=== PATIENT | male | born 1965 | race Caucasian/White ===

== ENCOUNTER → 2023-10-17 09:42 | Outpatient (REF) | payer BC, SELFPAY | LOC: RAD 09:42 | PROVIDERS: ATTENDING PHYSICIAN Internal Medicine | DX: M79.604 Pain in right leg (principal) | CPT/HCPCS: 73590 ==

== ENCOUNTER → 2024-07-19 08:05 | Outpatient (REF) | payer BC, SELFPAY | LOC: RAD 08:05 | PROVIDERS: ATTENDING PHYSICIAN Internal Medicine Gastroenterology | DX: K59.09 Other constipation (principal) | CPT/HCPCS: 74018 ==

== ENCOUNTER 2024-10-03 09:48 | Outpatient (RCR) | payer BC, SELFPAY | END 2024-10-03 23:59 | disposition home or self-care (01) | LOC: RPT 09:48 | PROVIDERS: ATTENDING PHYSICIAN Internal Medicine Gastroenterology; FAMILY PHYSICIAN Internal Medicine | DX: K59.09 Other constipation (principal); M62.89 Other specified disorders of muscle; Z73.6 Limitation of activities due to disability | CPT/HCPCS: 97110; 97112; 97140; 97162; 97530 ==

== ENCOUNTER 2024-10-31 10:04 | Outpatient (RCR) | payer BC, SELFPAY | END 2024-10-31 23:59 | disposition home or self-care (01) | LOC: RPT 10:04 | PROVIDERS: ATTENDING PHYSICIAN Internal Medicine Gastroenterology; FAMILY PHYSICIAN Internal Medicine | DX: K59.09 Other constipation (principal); M62.89 Other specified disorders of muscle; Z73.6 Limitation of activities due to disability | CPT/HCPCS: 97014; 97110; 97112; 97140; 97530 ==

== ENCOUNTER 2024-11-28 09:49 | Outpatient (RCR) | payer BC, SELFPAY | END 2024-11-28 23:59 | disposition home or self-care (01) | LOC: RPT 09:49 | PROVIDERS: ATTENDING PHYSICIAN Internal Medicine Gastroenterology; FAMILY PHYSICIAN Internal Medicine | DX: K59.09 Other constipation (principal); M62.89 Other specified disorders of muscle; Z73.6 Limitation of activities due to disability | CPT/HCPCS: 97014; 97110; 97112; 97140; 97530 ==

== ENCOUNTER → 2025-02-20 07:35 | Outpatient (REF) | payer BC, SELFPAY | LOC: RAD 07:35 | PROVIDERS: ATTENDING PHYSICIAN Internal Medicine | DX: R10.9 Unspecified abdominal pain (principal); R11.0 Nausea | CPT/HCPCS: 74177; Q9967 ==

== ENCOUNTER 2025-06-04 09:10 | Outpatient (RCR) | payer BC, SELFPAY | END 2025-06-04 23:59 | disposition home or self-care (01) | LOC: ROT 09:10 | PROVIDERS: ATTENDING PHYSICIAN Internal Medicine | DX: M79.601 Pain in right arm (principal); Z73.6 Limitation of activities due to disability; M77.11 Lateral epicondylitis, right elbow | CPT/HCPCS: 97010; 97110; 97140; 97166; 97535 ==

== ENCOUNTER 2025-08-22 13:39 | Inpatient (IN) | payer BC, SELFPAY ==
[2025-08-22] VITALS (11 sets, daily range): BP systolic 100–119; BP diastolic 58–84; BMI 25.0; BMI 24.3
[2025-08-22 05:13] LABS: ALT (SGPT) 29 U/L (0-50); AST (SGOT) 40 U/L (17-59); Albumin 5.0 g/dl (3.5-5.0); Alkaline Phosphatase 62 U/L (38-126); Blood Urea Nitrogen 21 mg/dl (9-20); Calcium 9.5 mg/dl (8.4-10.2); Carbon Dioxide 24 mmol/L (22-30); Chloride 101 mmol/L (98-107); Glucose 150 mg/dl (70-99); Lipase 110 U/L (23-300); Potassium 4.4 mmol/L (3.5-5.1); Sodium 136 mmol/L (135-145); Total Protein 7.4 g/dl (6.3-8.2); eGFR > 60.00
[2025-08-22] MEDS: ZOFRAN 4 MG IV ×3 (05:21→18:53)
[2025-08-22] MEDS: NSS 1000 IV ×2 (05:22→06:58)
[2025-08-22 05:25] LABS: Hematocrit 50.5 % (39.0-52.0); Hemoglobin 17.6 g/dL (13.0-18.0); Mean Corp Hgb Conc. 34.9 g/dL (33.0-37.0); Mean Corpuscular Volume 86.8 fL (80.0-94.0); Nucleated Red Blood Cells % 0 % (-); Platelet Count 199 10^3/uL (130-400); Red Cell Dist. Width 11.9 % (11.5-14.5)
[2025-08-22] MEDS: MORPHINE SULFATE 4 MG IV (05:26)
--- NOTE | 2025-08-22 05:33 | ED.GENMED ---
History of Present Illness
General
Chief Complaint: Abdominal Symptoms
Source: patient and records
Exam Limitations: none
Time Seen by Provider: 08/22/25 04:53
History of Present Illness
History of Present Illness:
60-year-old male presents with abdominal pain nausea vomiting diarrhea onset at 10 AM had some pizza, some alcohol, is also been weaning off medication mirtazapine has not had some in over a week, took some lorazepam which she takes at night to help
with sleep,--- since his gallbladder was removed few years ago he had chronic upper abdominal pain with nausea, states this is much worse, felt some chills, diarrhea is also had scoliosis surgery previously CAD with stenting, states this is
different than his coronary artery disease angina
Past History
Past History
ED Past Medical History: Other (Scoliosis with previous Silva rods)
Social History
Tobacco: Non-smoker
Alcohol: Occasional
Family History
Family History: Negative Early CAD
Review of Systems
Review of Systems
All Other Systems: Not applicable
Constitutional: Reports fatigue and chills; Denies fever
EENT: Reports no symptoms
Respiratory: Reports no symptoms
Cardiac: Denies chest pain
ABD/GI: Reports abdominal pain, nausea, vomiting and diarrhea
: Reports no symptoms
Musculoskeletal: Reports no symptoms
Skin: Reports no symptoms
Neurological: Reports no symptoms
Endocrine: Reports no symptoms
Phy Exam
Physical Exam
Physical Exam:
Physical Exam
General: 60-year-old male looks uncomfortable but nontoxic
Neck: Slightly dry sclera is white
Heart: s1/s2 regular rate and rhythm, no murmur. equal radial pulses.
Lungs: no acute respiratory distress. clear bilaterally
Abdomen: Minimal epigastric tenderness
Neuro: alert and oriented. no focal neurological deficits
Skin: no rash
Psychiatric: well kept. interactive and cooperative
Extremities: no edema.
Course
Orders/Labs/Results
Orders:
Orders
08/22/25 04:35
Complete Blood Count/With Diff Urgent
Comprehensive Metabolic Panel Urgent
Direct Bilirubin Urgent
Lipase Urgent
08/22/25 05:11
Electrocardiogram (*1) Urgent
Reason for Study: Abdominal Pain
08/22/25 05:12
EKG- Treatment ONCE
08/22/25 05:14
0.9% Sodium Chloride 1000 ml [Nss] 1,000 ml IV BOLUS
Ondansetron Injectable [Zofran] 4 mg IV NOW STA
08/22/25 05:19
Add On- LAB Urgent
Tests Added?: Direct bili
08/22/25 05:20
CT Abd/Pel (IV only)-DH only Urgent
Comment:
Reason For Exam: Pain and vomiting bili up
Morphine Sulfate 4 mg IV NOW STA
Abnormal Lab Results
08/22/25
04:35
WBC 13.6 H 10^3/uL
(4.8-10.8)
Absolute Neuts (auto) 12.7 H 10^3/uL
(1.4-6.5)
Absolute Lymphs (auto) 0.2 L 10^3/uL
(1.2-3.4)
Neutrophils % 93.1 H %
(42.2-75.2)
Lymphocytes % 1.6 L %
(20.5-51.1)
BUN 21 H mg/dl
(9-20)
Glucose 150 H mg/dl
(70-99)
Total Bilirubin 4.0 H mg/dl
(0.2-1.3)
08/22/25 04:35
08/22/25 04:35
Vital Signs
Initial and Last Documented VS:
Initial Vital Signs
Temp Pulse Resp BP Pulse Ox
97.8 F 84 21 115/82 99
08/22/25 04:11 08/22/25 04:11 08/22/25 04:11 08/22/25 04:11 08/22/25 04:11
Last Documented Vital Signs
Temp Pulse Resp BP Pulse Ox
97.8 F 84 21 115/82 99
08/22/25 04:11 08/22/25 04:11 08/22/25 04:11 08/22/25 04:11 08/22/25 05:34
*Radiology
Radiology exam reviewed: radiology read reviewed
*Pulse Oximetry
SaO2: 99
Oxygen Mode of Delivery: Room air
Patient hypoxic: no
*EKG
Interpreted by ED Provider?: Yes
Interpretation: normal
Comparison EKG: no comparison EKG present
Heart Rate: 78
Rate: normal
Rhythm: sinus
Ischemia: non-specific ST changes
*Entry Level Paralegal Interpretation
Rate: normal
Interpretation: normal
Heart Rate: 78
Rhythm: sinus
*Critical Care Note
Total Time (30-74mins, 75-104mins- exclusive of procedures): Not Applicable
Update Note
Update Note:
Update white count up bili up more so than baseline, will check CT start on IV fluids antiemetics, analgesics EKG looks nonischemic patient states this is different than his prior angina
ED Attending Note
-
Portions of this chart may have been created with voice recognition software.� Occasional wrong word or��sound alike� substitutions may have occurred due to the inherent limitations of voice recognition software.
Discharge Plan
Departure
Prescriptions:
No Action
atorvastatin 20 MG tablet
20 mg PO QPM
aspirin [Ecotrin Low Strength] 81 MG tablet,delayed release (DR/EC)
81 mg PO DAILY
lorazepam 0.5 MG tablet
0.5 mg PO Q4HPRN PRN (Reason: anixety)
lisinopril 2.5 MG tablet
2.5 mg PO DAILY
oxcarbazepine 300 MG tablet
300 mg PO BID
Nasacort
1 spray inhalation PRN PRN (Reason: allergies)
oxycodone-acetaminophen 5 MG/325 MG tablet
1 tab PO Q4HPRN PRN (Reason: moderate to severe pain) Qty: 6 0RF
Referrals:
Rita Barlow MD [Family Provider, Internal Medicine]
Interventions
Interventions:
*General Assessment Last Done: 08/22/25 05:30
*Neglect/Abuse Screening Last Done: 08/22/25 05:32
*ED COVID-19 Vaccine History Last Done: 08/22/25 05:30
*ED Influenza Vaccine History Last Done: 08/22/25 05:30
[facility] Fall Risk Assessment Tool Last Done: 08/22/25 05:32
*Risk Screen - Suicide (C-SSRS) Last Done: 08/22/25 04:08
YC-Qwijsr-Vqnobvqjsm Assessment Last Done: 08/22/25 05:32
Discharge Date and Time
Print Language: MEXICAN
--- NOTE | 2025-08-22 12:39 | HPS.HSE ---
Addendum entered and electronically signed by Javier Pak MD 08/22/25 20:06:
Attending Addendum-
I performed a history and physical exam of the patient and discussed his management with the resident. I reviewed the resident's note and agree with the documented findings and plan of care CC/HPI- came to [facility] ED due to poor po intake, nausea, and
multiple episodes of non bloody vomiting and diarrhea. Denies sick contacts fevers chills. Continues to feel nauseous and extremely fatigued s/p multiple doses of of zofran in ED. Seen with present. 'I still feel terrible and nauseous' Full 12
point ROS reviewed and negative except as documented Exam- vitals reviewed in EMR GEN-lethargic heart RRR lungs clear abd soft mild TTP generalized no rebound no guarding. LE no edema
Plan:
# Acute gastroenteritis with colitis
-associated leukocytosis
-check stool studies including norovirus-likely culprit
-hold of on abx for now
-CT abd 08/22-Findings suggest gastroenteritis and colitis. There is no evidence of obstruction or perforation.
-start IVF
-encourage clears
-supportive care
-CBC and BMP in am
# Hyperbilirubinemia
-from Gilbert's/stress induced
-trend
# Anxiety-cont q hs lorazepam and prn ativan-PDMP reviewed
# IBS
# CAD s/p stent-cont asa
# Elevated Sugars check HBa1c
Dispo hopeful dc in 24 to 48 hours
ACP
Patient consented to discuss, was with , time spent explanation of advance directives, changes in health status, patient�s health care wishes if the patient becomes unable to make health decisions, goals of care, code status, and prognosis- 16
minutes
Time spent coordinating care, review of plan of care with resident, personally reviewed previous records in EMR, med rec, labs, radiology, d/w nursing, family total time documented is exclusive of any additional time listed that was spent in advance
care planning discussion -�75 minutes
Original Note:
Family Physician
-
Family Physician: Rita Barlow
Chief Complaint
-
Abdominal pain
nausea and vomiting
diarrhea
History of Present Illness
Patient is a 60-year-old male with past medical history significant for IBS, hyperlipidemia, coronary artery disease, anxiety, who presented to the ED last night around 2 AM due to abdominal pain associated with nausea vomiting and diarrhea.
He had dinner around 6 PM, he had pizza along with his , soon after that he started to feel sick, had cramping, abdominal pain that was diffuse in nature and then he started to throw up.
He had about 4-6 episodes of vomiting, containing water and food particles, copious in amount but had no blood. He also had diarrhea, about 4-6 episodes, initially there were soft stools but later he had watery diarrhea but did not notice any black
stools, mucus or blood in the stools. He also felt very exhausted, cold and clammy but did not had any fever or chills.
He has had IBS for multiple years, and he has been working with her primary care physician for the IBS. Initially his statin was changed from atorvastatin to rosuvastatin but that did not help his symptoms, later he was switched to Repatha which he
took 3 doses, each dose 2 weeks apart. He felt briefly better but then he had his symptoms act up again with constipation. His Repatha was stopped about 1-1/2-month ago at the end of June. He was also on mirtazapine for his IBS which was
stopped 10 days ago. Initially he felt fine weaning off but then he had some anxiety issues difficulty sleeping at night which she has been treating with lorazepam.
He has had history of cholecystectomy that was done about 3-1/2 years ago. He was on cholestyramine for his IBS given the gallbladder removal but that was also discontinued about 3 months ago.
Currently he is off any medications and is in his washout period and is supposed to start ezetimibe in a few weeks.
. Since has gallbladder surgery, he reports he has had symptoms of upper abdominal pain and IBS and has been working with multiple diesel inspector in the past along with his primary care physician to control the symptoms. But he reports that
the symptoms are worse. Feels exhausted and has cold sweats ocasionally
Medical History
Past Medical History
Past Medical History: Reports CAD (s/p stent few years ago), Psychiatric (Anxiety) and Other (IBS,Gilbert's syndrome)
Past Surgical History: Reports Cardiac (PCI), Cholecystectomy (3 and half years ago) and Orthopedic (Back surgery for scoliosis twice)
Social History
Tobacco: Non-smoker
Alcohol: Occasional (once very 1-2 weeks)
Drug: None
Personal:
Living: With Family
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
Family History
Family History: Not pertinent
Allergies / Home Medications
Allergies reflects when Allergies were last updated in [facility].
Home Medications with original date entered in [facility]
Allergy/Medication List:
Allergies
Allergy/AdvReac Type Severity Reaction Status Date / Time
pollen extracts Allergy Nasal Verified 08/22/25 04:08
congestion
- seasonal
Home Medications
aspirin 81 mg tablet,delayed release (Ecotrin Low Strength) 81 mg PO DAILY Blood clot prevention/tx 08/16/16
lorazepam 0.5 mg tablet 0.5 mg PO DAILYPRN PRN anixety 08/16/16
cholecalciferol (vitamin D3) 25 mcg (1,000 unit) tablet (Vitamin D3) 25 mcg PO DAILY 08/22/25
clindamycin phosphate 1 % topical gel 1 applic topical DAILY face 08/22/25
diclofenac sodium 1 % topical gel 2 g topical Q8H right elbow 08/22/25
lorazepam 0.5 mg tablet 1 mg PO HS 08/22/25
Review of Systems
-
Constitutional: Reports Chills and Other (cold sweats)
EENT: Reports No Symptoms
Respiratory: Reports No Symptoms
Cardiac: Reports Diaphoresis
Abdomen/GI: Reports Abdominal Pain, Nausea, Vomiting and Diarrhea
: Reports No Symptoms
Musculoskeletal: Reports No Symptoms
Skin: Reports No Symptoms
Neurological: Reports No Symptoms
Endocrine: Reports No Symptoms
Hematologic/Lymphatic: Reports No Symptoms
Psych: Reports No Symptoms
Physical Exam
Vital Signs
Vital Signs
Temp Pulse Resp BP Pulse Ox
97.8 F 78 18 115/67 96
08/22/25 04:11 08/22/25 07:30 08/22/25 07:30 08/22/25 07:00 08/22/25 07:30
Physical Exam
General: Well Developed, No Apparent Distress and Conversant
HEENT: NormoCephalic, Anicteric and Moist mucous membranes
Respiratory: Clear; No Wheezes, Rales or Rhonchi
Cardiac: S1/S2 and Regular Rhythm; No Murmur, Rub or Gallop
GI: Soft, Non Tender and Normal Bowel Sounds
Musculoskeletal: No Clubbing, No Cyanosis and No Edema
Skin: Warm and Dry
Neuro: Awake and AO x 3
Psych: Calm
Laboratory Results
-
08/22/25 04:35
08/22/25 04:35
Laboratory Results
Total Bilirubin 4.0 mg/dl (0.2-1.3) H 08/22/25 04:35
AST 40 U/L (17-59) 08/22/25 04:35
ALT 29 U/L (0-50) 08/22/25 04:35
Alkaline Phosphatase 62 U/L (38-126) 08/22/25 04:35
Lipase 110 U/L (23-300) 08/22/25 04:35
Impression/Plan
-
IMPRESSION:
Patient is a 60-year-old male, with past medical history significant for IBS, gut brain syndrome, coronary artery disease, hyperlipidemia who is here for abdominal pain associated with nausea vomiting and diarrhea
CT abdomen/pelvis suggest gastroenteritis and colitis. There is no evidence of obstruction or perforation.
History of cholecystectomy 3-1/2 years ago
Lipase levels normal
ASSESSMENT/PLAN:
#Abdominal pain secondary to colitis versus gastroenteritis
Acute onset of symptoms after dining out-suggests gastroenteritis
No history of fever or chills
No evidence of obstruction or perforation or CT abdomen
Lipase levels normal
History of cholecystectomy with normal liver enzymes and biliary tree
Isolated hyperbilirubinemia with history of Gilbert syndrome
Check stool studies
Symptomatic management with pain control and antiemetics
Clear liquid diet
Hold off antibiotics
Continue to monitor
# Leukocytosis
Most likely reactive to acute gastroenteritis/colitis
Hold off antibiotics
Continue to monitor
#Isolated hyperbilirubinemia
Most likely secondary to recent stress given the history of Gilbert's syndrome
Direct bilirubin normal
Continue to monitor
#Anxiety/depression-continue lorazepam as needed
#Coronary artery disease-no chest pain, continue baby aspirin
# History of IBS
# History of cholecystectomy
# History of PCI stent
# History of back surgery for scoliosis
CODE STATUS-DNR
Clear liquid diet
DVT prophylaxis-sequential compression devices
present at bedside, all questions and concerns answered
[2025-08-22] MEDS: ZOFRAN 4 MG PO (15:37)
[2025-08-22] MEDS: ATIVAN 0.5 MG PO (18:52)
[2025-08-22] MEDS: TYLENOL 650 MG PO (20:19)
[2025-08-22] MEDS: ATIVAN 1 MG PO (22:44)
[2025-08-23 07:15] VITALS: BP 117/70
--- NOTE | 2025-08-23 07:35 | W.PN.HOSP.TC ---
Addendum entered and electronically signed by Javier Pak MD 08/23/25 22:41:
Attending Addendum-I saw and evaluated the patient. I reviewed the resident�s note and agree with findings and plan as documented in the resident�s note. Sub: continues to have diarrhea but able to omer po, less nausea and no vomiting. feels greatly
improved. wants to go home. No fevers chills. Full 12 point ROS reviewed and negative except as documented Exam- vitals reviewed in EMR GEN-NAD heart RRR lungs clear abd soft mild TTP generalized no rebound no guarding. LE no edema
Plan:
# Acute gastroenteritis with colitis secondary to norovirus
-leukocytosis resolved
-CT abd 08/22-Findings suggest gastroenteritis and colitis. There is no evidence of obstruction or perforation.
-advance diet as omer
-supportive care
-DC home
# Hyperbilirubinemia
-from Gilbert's/stress induced
-trending down
# Anxiety-cont q hs lorazepam and prn ativan-PDMP reviewed
# IBS
# CAD s/p stent-cont asa
# Elevated Sugars check HBa1c
Dispo DC home
Time spent coordinating care, DC planning, review of DC plan of care with resident, transition of care, review of records, med rec/scripts sent electronically, consults, notes, d/w, nursing, and CM� 31 mins >50% of this time was devoted to
counseling and coordination of care
Original Note:
Today's Communication/Plan
-
Stable for discharge
Assessment / Plan
Assessment / Plan
Impression
Patient is a 60-year-old male, with past medical history significant for IBS, gut brain syndrome, coronary artery disease, hyperlipidemia who is here for abdominal pain associated with nausea vomiting and diarrhea
CT abdomen/pelvis suggest gastroenteritis and colitis. There is no evidence of obstruction or perforation.
History of cholecystectomy 3-1/2 years ago
Lipase levels normal
ASSESSMENT/PLAN:
#Abdominal pain secondary to acute gastroenteritis with colitis
Remains afebrile, denies any blood in stools
No evidence of obstruction or perforation or CT abdomen
C. difficile negative
Norovirus Positive
stool culture pending
Continue IV fluids
Continue clear liquid diet
# Leukocytosis
Most likely reactive to acute gastroenteritis/colitis
Resolved
#Isolated hyperbilirubinemia
Most likely secondary to Gilbert's syndrome-trending down
Direct bilirubin normal
# Mild hyponatremia-continue IV fluids and monitor
#Hypocalcemia-continue to monitor-corrected calcium 8.3
#Anxiety/depression-continue lorazepam as needed
#Coronary artery disease-no chest pain, continue baby aspirin
# History of IBS
# History of cholecystectomy
# History of PCI stent
# History of back surgery for scoliosis
CODE STATUS-DNR
Clear liquid diet
DVT prophylaxis-sequential compression devices
present at bedside, all questions and concerns answered
Anticipated Discharge: 24 - 48 hours
Subjective/Interval History
-
Date of Service: August 23, 2025
Patient seen and examined at bedside
Overall feeling better, feels less nauseous and has improvement in abdominal pain
Still having loose stools, no further vomiting
Denies any fever or chills and has no blood in stools
Objective Data
-
Labs:
Laboratory Results
08/23/25
07:24
WBC Pending
Hgb Pending
Hct Pending
Plt Count Pending
Sodium Pending
Potassium Pending
Chloride Pending
Carbon Dioxide Pending
BUN Pending
Creatinine Pending
Glucose Pending
Calcium Pending
Total Bilirubin Pending
AST Pending
ALT Pending
Alkaline Phosphatase Pending
Vital Signs:
Vital Signs
Temp Pulse Resp BP Pulse Ox
97.8 F 62 18 119/67 95
08/22/25 23:00 08/22/25 23:00 08/22/25 23:00 08/22/25 23:00 08/22/25 23:00
I&O
08/22/25 08/23/25 08/24/25
06:59 06:59 06:59
Intake Total 240 / 240
Balance 240 / 240
Review of Systems
-
Constitutional: Reports Fatigue
EENT: Reports No Symptoms Reported
Respiratory: Reports No Symptoms
Cardiac: Reports No Symptoms
Abdomen/GI: Reports Abdominal Pain and Nausea
Breast: Reports No Symptoms
Genitourinary: Reports No Symptoms
Musculoskeletal: Reports No Symptoms
Skin: Reports No Symptoms
Neuro: Reports No Symptoms
Endocrine: Reports No Symptoms
Hematologic / Lymphatic: Reports No Symptoms
Allergy / Immunology: Reports No Symptoms
Physical Exam
-
General: Well Developed, Well Nourished and No Apparent Distress
HEENT: Normocephalic, Moist Mucous Membranes and Anicteric
Respiratory: Clear to Auscultation; Negative Wheezes, Rales or Rhonchi
Cardiac: Regular Rhythm and S1/S2
GI: Soft, Nontender, Nondistended and Normal Bowel Sounds
Musculoskeletal: No Clubbing, No Cyanosis and No Edema
Skin: Warm and Dry
Neuro: Awake and AO x 3
Psych: Calm
[2025-08-23] MEDS: ASPIR LOW (ENTERIC COATED) 81 MG PO (08:17)
[2025-08-23] MEDS: ZOFRAN 4 MG IV (08:18)
[2025-08-23] MEDS: VITAMIN D3 (cholecalciferol) 25 MCG PO (08:18)
[2025-08-23 09:00] LABS: Hematocrit 45.4 % (39.0-52.0); Hemoglobin 15.7 g/dL (13.0-18.0); Mean Corp Hgb Conc. 34.6 g/dL (33.0-37.0); Mean Corpuscular Volume 87.0 fL (80.0-94.0); Nucleated Red Blood Cells % 0 % (-); Platelet Count 149 10^3/uL (130-400); Red Cell Dist. Width 12.1 % (11.5-14.5)
[2025-08-23 09:28] LABS: ALT (SGPT) 38 U/L (0-50); AST (SGOT) 45 U/L (17-59); Albumin 3.4 g/dl (3.5-5.0); Alkaline Phosphatase 45 U/L (38-126); Blood Urea Nitrogen 14 mg/dl (9-20); Calcium 7.8 mg/dl (8.4-10.2); Carbon Dioxide 22 mmol/L (22-30); Chloride 103 mmol/L (98-107); Estimated Creatinine Clearance 101 ml/min; Glucose 107 mg/dl (70-99); Magnesium 2.2 mg/dl (1.6-2.3); Potassium 3.8 mmol/L (3.5-5.1); Sodium 132 mmol/L (135-145); Total Protein 5.6 g/dl (6.3-8.2); eGFR > 60.00
[2025-08-23 09:31] LABS: Glycohemoglobin (HgbA1c) 5.1 % (4.0-5.9)
[2025-08-23] MEDS: D5/0.45%NACL 1000 IV (10:29)
--- NOTE | 2025-08-23 12:57 | CM ---
Initial assessment completed. Patient is a 60-year-old male with past medical history significant for IBS, hyperlipidemia, coronary artery disease, anxiety, who presented to the ED last night around 2 AM due to abdominal pain associated with nausea
vomiting and diarrhea.
Patient resides w/ spouse in [facility], 1 [address] to enter. Patient is independent in all areas. No DME. No SNF/HC hx. OP PT earlier this year for elbow.
Address, point of contact and insurance verified
PCP: Rita Barlow
Pharmacy: [facility]
Plan: Home, no needs anticipated
--- NOTE | 2025-08-23 13:27 | W.DCSUMMARY ---
Addendum entered and electronically signed by Javier Pak MD 08/23/25 22:42:
Read, reviewed, and agree. See same day progress note for additional details.
Nicola Pak MD
Original Note:
Documented by User: Jack Beverly MD, Resident 08/23/25 13:48
Discharge Summary
Discharge Data
Date of Admission: 08/22/25
Date of Discharge: 08/23/25
-
Pending Results: Yes
Hospital Course
Discharging Physician :
Javier Pak MD, Jack Marroquin MD
Disposition :
Home
Primary care physician :
Rita Barlow
Principal Discharge diagnosis :
Acute gastroenteritis with colitis
Norovirus positive
Chronic Discharge diagnosis :
CAD (s/p stent few years ago), Psychiatric (Anxiety) and Other (IBS,Gilbert's syndrome)
Cardiac (PCI), Cholecystectomy (3 and half years ago) and Orthopedic (Back surgery for scoliosis twice)
Hospital Course :
Patient is a 60-year-old male with past medical history significant for IBS, hyperlipidemia, coronary artery disease, anxiety, who presented to the ED last night around 2 AM due to abdominal pain associated with nausea vomiting and diarrhea.
He had dinner around 6 PM, he had pizza along with his , soon after that he started to feel sick, had cramping, abdominal pain that was diffuse in nature and then he started to throw up.
He had about 4-6 episodes of vomiting, containing water and food particles, copious in amount but had no blood. He also had diarrhea, about 4-6 episodes, initially there were soft stools but later he had watery diarrhea but did not notice any black
stools, mucus or blood in the stools.
Vitally and hemodynamically stable in the ED. Started on IV fluids, CT abdomen done consistent with gastroenteritis and colitis. Admitted to the hospitalist service, treated conservatively with IV fluids, pain management, antiemetics.
No antibiotics given
Patient reports significant improvement in nausea and has been feeling overall fine. No fever, chills, or blood in stools. Abdominal pain getting better.
Stool test came back positive for norovirus.
Stable for discharge
Important imaging findings :
CT Abdomen/Pelvis -08/22/25-Findings suggest gastroenteritis and colitis. There is no evidence of obstruction or perforation
Discharge Plan
-
Patient Disposition: Home (Routine Discharge)
Discharge Diagnosis/Procedures: Acute Gastroenteritis
Condition: Fair
Diet: Regular
Additional Diets: Keep yourself hydrated with gatorade and pedialyte
Driving Restrictions: As prior to admission
Instructions: Viral gastroenteritis in adults
Referrals:
Rita Barlow MD [Family Provider, Internal Medicine]
Additional Discharge Medication Instructions: Please Keep yourself hydrated with oral fluids, including ORS and Gatorade
Instructions added to discharge
Please follow up with your PCP
In case of fever, chills worsening abdominal pain or blood in stools please come to the hospital ER
Prescriptions:
Continued
aspirin [Ecotrin Low Strength] 81 MG tablet,delayed release (DR/EC)
81 mg PO DAILY
lorazepam 0.5 MG tablet
0.5 mg PO DAILYPRN PRN (Reason: anixety)
lorazepam 0.5 mg Tablet
1 mg PO HS
clindamycin phosphate 1 % Gel
1 applic TOPICAL DAILY
cholecalciferol (vitamin D3) [Vitamin D3] 25 mcg (1,000 unit) Tablet
25 mcg PO DAILY
diclofenac sodium 1 % Gel
2 g TOPICAL Q8H
Discharge Orders:
Discharge Patient (As Directed); Ordered 08/23/25
Ordered By: Jack Beverly
Discharge Date and Time
Discharge Date/Time: 08/23/25 16:17
Print Language: MOHAWK

Documented by User: Javier Pak MD 08/23/25 22:37
Discharge Summary
Discharge Data
Date of Admission: 08/22/25
Date of Discharge: 08/23/25
Discharge Plan
-
Patient Disposition: Home (Routine Discharge)
Discharge Diagnosis/Procedures: Acute Gastroenteritis
Condition: Fair
Diet: Regular
Additional Diets: Keep yourself hydrated with gatorade and pedialyte
Driving Restrictions: As prior to admission
Instructions: Viral gastroenteritis in adults
Referrals:
Rita Barlow MD [Family Provider, Internal Medicine]
Additional Discharge Medication Instructions: Please Keep yourself hydrated with oral fluids, including ORS and Gatorade
Instructions added to discharge
Please follow up with your PCP
In case of fever, chills worsening abdominal pain or blood in stools please come to the hospital ER
Prescriptions:
Continued
aspirin [Ecotrin Low Strength] 81 MG tablet,delayed release (DR/EC)
81 mg PO DAILY
lorazepam 0.5 MG tablet
0.5 mg PO DAILYPRN PRN (Reason: anixety)
lorazepam 0.5 mg Tablet
1 mg PO HS
clindamycin phosphate 1 % Gel
1 applic TOPICAL DAILY
cholecalciferol (vitamin D3) [Vitamin D3] 25 mcg (1,000 unit) Tablet
25 mcg PO DAILY
diclofenac sodium 1 % Gel
2 g TOPICAL Q8H
Discharge Orders:
Discharge Patient (As Directed); Ordered 08/23/25
Ordered By: Jack Beverly
Discharge Date and Time
Discharge Date/Time: 08/23/25 16:17
Print Language: MOHAWK
[2025-08-23 15:20] VITALS: BP 127/73
== END 2025-08-23 16:17 | disposition home or self-care (01) | DRG 392 ==
LOC: 4 WEST ACU 13:39
PROVIDERS: ADMITTING PHYSICIAN Family Medicine; EMERGENCY PHYSICIAN Emergency Medicine; FAMILY PHYSICIAN Internal Medicine
DX: A08.11 Acute gastroenteropathy due to Norwalk agent (principal); E87.1 Hypo-osmolality and hyponatremia; F41.9 Anxiety disorder, unspecified; K58.9 Irritable bowel syndrome, unspecified; I25.119 Atherosclerotic heart disease of native coronary artery with unspecified angina pectoris; Z66 Do not resuscitate; E80.4 Gilbert syndrome; F32.A Depression, unspecified
CPT/HCPCS: 74177; 80053; 82248; 83036; 83690; 83735; 85025; 87045; 87046; 87324; 87427; 87449; 87798; 89055; 93005; 96374; 96375; 96376; 99285; Q9967